=== PATIENT | female | born 1945 | race African-American/Black ===

== ENCOUNTER 2022-01-16 10:03 | Inpatient (IN) | payer MEDICARE, OTHER ==
[~2022-01-16] VITALS: Ht 170.2 cm; Wt 64.1 kg
[2022-01-16] MEDS ORDERED: 0.9% SODIUM CHLORIDE 10 ML VIAL IRRIG ONE (10:04)
[2022-01-16] MEDS ORDERED: LORazepam 2 MG/ML VIAL IM ONE (10:04)
[2022-01-16] MEDS ORDERED: PIPERACILLIN/TAZO 3.375 GM/D5W 50 ML IV ONE (10:15)
[2022-01-16] MEDS ORDERED: SODIUM CHLORIDE 0.9% 2,000 ML IV ONE (10:15)
[2022-01-16] MEDS ORDERED: LORazepam 2 MG/ML VIAL IVP ONE (10:30)
[2022-01-16] MEDS ORDERED: DIAZEPAM 5 MG/ML 2 ML SYRINGE IVP ONE (10:30)
[2022-01-16 10:53] LABS: BASOPHILS % (AUTO) 0.1 % (0.0-2.0); EOSINOPHILS % (AUTO) 0 % (1.0-6.0); HEMATOCRIT 24.9 % (36-46); HEMOGLOBIN 7.7 g/dL (12.0-16.0); LYMPHOCYTES # (AUTO) 0.9 K/uL (1.0-4.8); LYMPHOCYTES % (AUTO) 6.1 % (22.0-44.0); MEAN CORPUSCULAR HEMOGLOBIN 31.8 pg (26.0-34.0); MEAN CORPUSCULAR HGB CONC 31.1 G/dL (31.0-37.0); MEAN CORPUSCULAR VOLUME 102 fL (80-100); MONOCYTES % (AUTO) 6.7 % (2.0-9.0); NEUTROPHILS # (AUTO) 12.7 K/uL (1.8-7.7); RED BLOOD CELL COUNT(AUTO) 2.43 MIL/uL (4.00-5.20); RED CELL DISTRIBUTION WIDTH 20.5 % (11.5-14.5)
[2022-01-16 11:00] LABS: CALCIUM, TOTAL 8.2 mg/dL (8.8-10.5); CREATININE 2.85 mg/dL (0.60-1.30); POTASSIUM 3.6 mmol/L (3.5-5.1)
[2022-01-16] MEDS ORDERED: MANNITOL 25%-12.5 GM/50 ML VIAL IVP ONE (11:00)
[2022-01-16 11:01] LABS: NEUTROPHILS % (AUTO) 87.1 % (40.0-70.0)
[2022-01-16 11:07] LABS: ALBUMIN 2.2 g/dL (3.4-5.0); BILIRUBIN,TOTAL 0.5 mg/dL (0.1-1.0); TOTAL PROTEIN, SERUM 5.7 g/dL (6.4-8.2)
[2022-01-16 11:14] LABS: INR 1.1 (0.9-1.1); PROTHROMBIN TIME 11.3 SEC (9.4-11.6)
[2022-01-16] MEDS ORDERED: NiCARDipine HCL 25 MG in SODIUM CHLORIDE 0.9% 240 ML IV PRN (11:15)
[2022-01-16 12:29] LABS: APPEARANCE,URINE HAZY (CLEAR); BILIRUBIN,URINE NEGATIVE (NEGATIVE); GLUCOSE, URINE (UA) 70-100 mg/dL (NEGATIVE); KETONES,URINE NEGATIVE (NEGATIVE); LEUKOCYTE ESTERASE ,URINE NEGATIVE (NEGATIVE); NITRATE,URINE NEGATIVE (NEGATIVE); OCCULT BLOOD,URINE LARGE (NEGATIVE); PROTEIN,URINE 300-600,SEE CONFIRM mg/dL (NEGATIVE); SPECIFIC GRAVITIY, URINE 1.013 (1.003-1.030); UROBILINOGEN,URINE <=1.0 mg/dL (<=1.0)
[2022-01-16 12:43] LABS: SULFOSALICYLIC ACID,URINE 3+ (Negative)
[2022-01-16 12:44] LABS: BACTERIA,URINE None Seen /HPF (None Seen); YEAST,URINE Many /HPF (None Seen)
[2022-01-16 12:58] LABS: PLATELET COUNT (AUTO) 56 K/uL (150-450)
[2022-01-16] MEDS ORDERED: MORPHINE SULFATE 2 MG/ML SYRINGE IVP PRN (13:00)
[2022-01-16] MEDS ORDERED: MAGNESIUM HYDROXIDE SUSPENSION 30 ML UDCUP PO PRN (13:00)
[2022-01-16] MEDS ORDERED: HYDROCODONE/ACETAMINOPHEN 5-325 MG TABLET PO PRN (13:00)
[2022-01-16] MEDS ORDERED: BISACODYL 10 MG RECTAL RECTAL SUPPOSITORY PR PRN (13:00)
[2022-01-16] MEDS ORDERED: ONDANSETRON HCL 4 MG/2 ML VIAL IVP PRN (13:00)
[2022-01-16] MEDS ORDERED: ZOLPIDEM TARTRATE 5 MG TABLET PO PRN (13:00)
[2022-01-16] MEDS ORDERED: ACETAMINOPHEN 325 MG TABLET PO PRN (13:00)
[2022-01-16 13:51] LABS: ABG BASE EXCESS -2.4 mmol/L (-2.0-3.0); ABG CARBOXYHEMOGLOBIN 0.1 % (0.0-1.5); ABG HCO3 22.7 mmol/L (22.0-26.0); ABG METHEMOGLOBIN 0.2 % (0.0-1.5); ABG OXYGEN SATURATION 98.1 % (95.0-98.0); ABG OXYHEMOGLOBIN 97.8 % (94.0-100.0); ABG PCO2 36 mmHg (35-45); ABG PH 7.407 (7.35-7.450); ABG TOTAL HEMOGLOBIN 7.8 G/dL (12.0-18.0); PO2, ARTERIAL BG 118.6 mmHg (75.0-83.0); SITE, BLOOD GAS LFT RADIAL; SOURCE, BLOOD GAS ARTERIAL; TEMPERATURE, FAHRENHEIT, BG 99.2 FAHREN (96.0-98.6)
[2022-01-16 13:52] LABS: ABG A-A DIFF O2 95.7 mmHg (10-20.0); O2 DEVICE,BLOOD GAS CANNULA (ROOM AIR)
[2022-01-16] MEDS ORDERED: MethylPREDNISolone SOD SUCC 125 MG/2 ML VIAL IVP SCH (14:45)
[2022-01-16] MEDS ORDERED: MethylPREDNISolone SOD SUCC 500 MG in SODIUM CHLORIDE 0.9% 50 ML IV SCH (15:00)
[2022-01-16] MEDS: NiCARDipine HCL 25 MG in SODIUM CHLORIDE 0.9% 240 ML IV PRN ×2 (16:04→21:48)
[2022-01-16] MEDS ORDERED: HYDR25TA2 PO (17:50)
[2022-01-16] MEDS ORDERED: METH-386 PO (17:50)
[2022-01-16] MEDS ORDERED: CARV3.1231 PO (17:50)
[2022-01-16] MEDS ORDERED: [UNRECOGNIZED DRUG - CODE] IV (17:50)
[2022-01-16] MEDS ORDERED: AMLO-258 PO (17:50)
[2022-01-16] MEDS ORDERED: LISI-663 PO (17:50)
[2022-01-16] MEDS ORDERED: PRED5SOL PO (17:50)
[2022-01-16 19:21] LABS: APPEARANCE,URINE HAZY (CLEAR); BILIRUBIN,URINE NEGATIVE (NEGATIVE); GLUCOSE, URINE (UA) NEGATIVE (NEGATIVE); KETONES,URINE NEGATIVE (NEGATIVE); LEUKOCYTE ESTERASE ,URINE NEGATIVE (NEGATIVE); NITRATE,URINE NEGATIVE (NEGATIVE); OCCULT BLOOD,URINE MODERATE (NEGATIVE); PROTEIN,URINE 300-600,SEE CONFIRM mg/dL (NEGATIVE); SPECIFIC GRAVITIY, URINE 1.015 (1.003-1.030); UROBILINOGEN,URINE <=1.0 mg/dL (<=1.0)
[2022-01-16] MEDS: PIPERACILLIN SODIUM/TAZOBACTAM 2.25 GM in DEXTROSE 5%-WATER 50 ML IV SCH (19:22)
[2022-01-16 19:27] LABS: AMPHET/METH SCREEN,URINE NEGATIVE (NEGATIVE); BARBITURATE SCREEN, URINE NEGATIVE (NEGATIVE); BENZODIAZEPINES SCREEN,URINE NEGATIVE (NEGATIVE); CANNABINOID SCREEN,URINE NEGATIVE (NEGATIVE); COCAINE SCREEN,URINE NEGATIVE (NEGATIVE); METHADONE SCREEN, URINE NEGATIVE (NEGATIVE); OPIATE SCREEN,URINE NEGATIVE (NEGATIVE)
[2022-01-16 19:28] LABS: PHENCYCLIDINE SCREEN,URINE NEGATIVE (NEGATIVE)
[2022-01-16 19:29] LABS: PROTEIN,URINE RANDOM 323 mg/dL (0-11.9); SODIUM,URINE RANDOM 81 mmol/l (20-110)
[2022-01-16 19:56] LABS: YEAST,URINE Many /HPF (None Seen)
[2022-01-16 19:57] LABS: BACTERIA,URINE None Seen /HPF (None Seen); RBC,URINE 0-2 /HPF (0-2); SQUAMOUS EPITHELIAL CELL,UR Rare /LPF (None Seen)
[2022-01-16 20:45] VITALS: BP 133/104
[2022-01-16] MEDS: MYCOPHENOLATE MOFETIL 250 MG CAPSULE PO SCH (21:00)
[2022-01-16] MEDS: DOCUSATE SODIUM 100 MG CAPSULE PO SCH (21:00)
[2022-01-16] MEDS: FUROSEMIDE 20 MG/2 ML VIAL IVP SCH (21:31)
[2022-01-16 22:00] VITALS: BP 123/87
[2022-01-17] VITALS (11 sets, daily range): BP systolic 107–137; BP diastolic 47–75
[2022-01-17] MEDS: PIPERACILLIN SODIUM/TAZOBACTAM 2.25 GM in DEXTROSE 5%-WATER 50 ML IV SCH ×3 (02:42→20:44)
[2022-01-17] MEDS: NiCARDipine HCL 25 MG in SODIUM CHLORIDE 0.9% 240 ML IV PRN ×4 (02:42→10:38)
[2022-01-17] MEDS ORDERED: SODIUM CHLORIDE 0.9% 250 ML IV ONE (02:44)
[2022-01-17 05:59] LABS: CALCIUM, TOTAL 8.1 mg/dL (8.8-10.5); CREATININE 3.12 mg/dL (0.60-1.30); PHOSPHORUS 4.8 mg/dL (2.5-4.9); POTASSIUM 3.7 mmol/L (3.5-5.1)
[2022-01-17 06:05] LABS: % IRON SATURATION 19.7 % (22-44)
[2022-01-17 06:11] LABS: BASOPHILS % (AUTO) 0.4 % (0.0-2.0); EOSINOPHILS % (AUTO) 0 % (1.0-6.0); LYMPHOCYTES # (AUTO) 0.8 K/uL (1.0-4.8); LYMPHOCYTES % (AUTO) 6.2 % (22.0-44.0); MEAN CORPUSCULAR HEMOGLOBIN 32.5 pg (26.0-34.0); MEAN CORPUSCULAR HGB CONC 32.5 G/dL (31.0-37.0); MEAN CORPUSCULAR VOLUME 100 fL (80-100); MONOCYTES # (AUTO) 0.2 K/uL (0.1-1.0); MONOCYTES % (AUTO) 1.7 % (2.0-9.0); NEUTROPHILS # (AUTO) 12.4 K/uL (1.8-7.7); NEUTROPHILS % (AUTO) 91.7 % (40.0-70.0); PLATELET COUNT (AUTO) 60 K/uL (150-450); RED BLOOD CELL COUNT(AUTO) 1.99 MIL/uL (4.00-5.20); RED CELL DISTRIBUTION WIDTH 20.9 % (11.5-14.5)
[2022-01-17 06:13] LABS: HEMATOCRIT 19.9 % (36-46); HEMOGLOBIN 6.5 g/dL (12.0-16.0)
[2022-01-17] MEDS: MethylPREDNISolone SOD SUCC 40 MG/ML VIAL IVP SCH (09:18)
[2022-01-17] MEDS: EPOETIN ALFA 10,000 UNITS/ML VIAL SQ SCH (09:18)
[2022-01-17] MEDS: FUROSEMIDE 20 MG/2 ML VIAL IVP SCH ×2 (09:19→20:43)
[2022-01-17] MEDS: MYCOPHENOLATE MOFETIL 250 MG CAPSULE PO SCH ×2 (09:22→22:58)
[2022-01-17] MEDS: PANTOPRAZOLE SODIUM 40 MG DR TABLET PO SCH (09:24)
[2022-01-17] MEDS: DOCUSATE SODIUM 100 MG CAPSULE PO SCH ×2 (09:24→20:44)
[2022-01-17] MEDS ORDERED: SOD FERRIC GLUC COMPLX/SUCROSE 125 MG in SODIUM CHLORIDE 0.9% 100 ML IV SCH (10:00)
[2022-01-17] MEDS: CARVEDILOL 3.125 MG TABLET PO SCH ×2 (10:35→20:43)
[2022-01-17] MEDS ORDERED: PRED-554 PO (11:37)
[2022-01-17] MEDS ORDERED: CARV6 PO (11:37)
[2022-01-17] MEDS ORDERED: MYCO500T5 PO (11:37)
[2022-01-17] MEDS ORDERED: TRAV2.5D7 OU (11:37)
[2022-01-18] VITALS: BP 127/63
[2022-01-18] MEDS: PIPERACILLIN SODIUM/TAZOBACTAM 2.25 GM in DEXTROSE 5%-WATER 50 ML IV SCH ×3 (02:25→18:05)
[2022-01-18 04:00] VITALS: BP 131/74
[2022-01-18 05:19] LABS: BASOPHILS % (AUTO) 0.3 % (0.0-2.0); EOSINOPHILS % (AUTO) 0 % (1.0-6.0); LYMPHOCYTES # (AUTO) 0.6 K/uL (1.0-4.8); LYMPHOCYTES % (AUTO) 5.1 % (22.0-44.0); MEAN CORPUSCULAR HEMOGLOBIN 32.3 pg (26.0-34.0); MEAN CORPUSCULAR HGB CONC 31.8 G/dL (31.0-37.0); MEAN CORPUSCULAR VOLUME 102 fL (80-100); MONOCYTES # (AUTO) 0.4 K/uL (0.1-1.0); NEUTROPHILS # (AUTO) 11.1 K/uL (1.8-7.7); PLATELET COUNT (AUTO) 71 K/uL (150-450); RED BLOOD CELL COUNT(AUTO) 1.84 MIL/uL (4.00-5.20)
[2022-01-18 05:20] LABS: NEUTROPHILS % (AUTO) 91.6 % (40.0-70.0)
[2022-01-18 05:30] LABS: CALCIUM, TOTAL 7.6 mg/dL (8.8-10.5); CHOL/HDL RATIO 2.9 (3.9-5.7); CREATININE 3.84 mg/dL (0.60-1.30); FREE T4 (FREE THYROXINE) 0.74 ng/dL (0.76-1.46); HEMATOCRIT 18.7 % (36-46); POTASSIUM 3.6 mmol/L (3.5-5.1); THYROID STIMULATING HORMONE 0.8 uIU/mL (0.36-3.74)
[2022-01-18] MEDS: ATORVASTATIN CALCIUM 20 MG TABLET PO SCH (07:51)
[2022-01-18] MEDS: FUROSEMIDE 20 MG/2 ML VIAL IVP SCH ×2 (07:51→21:05)
[2022-01-18] MEDS: MethylPREDNISolone SOD SUCC 40 MG/ML VIAL IVP SCH (07:51)
[2022-01-18] MEDS: PANTOPRAZOLE SODIUM 40 MG DR TABLET PO SCH (07:51)
[2022-01-18] MEDS: CARVEDILOL 3.125 MG TABLET PO SCH ×2 (07:51→21:05)
[2022-01-18] MEDS: DOCUSATE SODIUM 100 MG CAPSULE PO SCH ×2 (07:52→21:05)
[2022-01-18] MEDS: MYCOPHENOLATE MOFETIL 250 MG CAPSULE PO SCH ×2 (07:52→21:05)
[2022-01-18 08:00] VITALS: BP 158/82
[2022-01-18] MEDS: SOD FERRIC GLUC COMPLX/SUCROSE 125 MG in SODIUM CHLORIDE 0.9% 100 ML IV SCH (09:01)
[2022-01-18 12:00] VITALS: BP 142/65
[2022-01-18] MEDS ORDERED: SODIUM CHLORIDE 0.9% 250 ML IV ONE (14:48)
[2022-01-18 16:00] VITALS: BP 165/90
[2022-01-18 20:00] VITALS: BP 175/98
[2022-01-18] MEDS: BRIMONIDINE TARTRATE 0.1% 5 ML OPHTHALMIC SOLUTION OU SCH (21:05)
[2022-01-18] MEDS: TRAVOPROST-Z 0.004% 2.5 ML OPHTHALMIC SOLUTION OU SCH (21:05)
[2022-01-18] MEDS ORDERED: CARVEDILOL 3.125 MG TABLET PO SCH (22:30)
[2022-01-19] VITALS (13 sets, daily range): BP systolic 135–201; BP diastolic 77–170
[2022-01-19] MEDS: PIPERACILLIN SODIUM/TAZOBACTAM 2.25 GM in DEXTROSE 5%-WATER 50 ML IV SCH ×3 (03:01→17:59)
[2022-01-19] MEDS ORDERED: SODIUM CHLORIDE 0.9% 250 ML IV ONE (04:32)
[2022-01-19] MEDS ORDERED: HydrALAZINE HCL 20 MG/ML VIAL IVP ONE (04:45)
[2022-01-19 05:19] LABS: BASOPHILS % (AUTO) 0.4 % (0.0-2.0); EOSINOPHILS % (AUTO) 0.1 % (1.0-6.0); LYMPHOCYTES # (AUTO) 0.6 K/uL (1.0-4.8); LYMPHOCYTES % (AUTO) 5.3 % (22.0-44.0); MEAN CORPUSCULAR HEMOGLOBIN 32.5 pg (26.0-34.0); MEAN CORPUSCULAR HGB CONC 30.3 G/dL (31.0-37.0); MEAN CORPUSCULAR VOLUME 107 fL (80-100); MONOCYTES # (AUTO) 0.7 K/uL (0.1-1.0); MONOCYTES % (AUTO) 6.4 % (2.0-9.0); NEUTROPHILS # (AUTO) 10.2 K/uL (1.8-7.7); PLATELET COUNT (AUTO) 53 K/uL (150-450); RED BLOOD CELL COUNT(AUTO) 1.86 MIL/uL (4.00-5.20); RED CELL DISTRIBUTION WIDTH 20.3 % (11.5-14.5)
[2022-01-19 05:31] LABS: NEUTROPHILS % (AUTO) 87.8 % (40.0-70.0)
[2022-01-19 05:34] LABS: HEMATOCRIT 19.8 % (36-46)
[2022-01-19 05:41] LABS: ALBUMIN 2.3 g/dL (3.4-5.0); BILIRUBIN,TOTAL 0.3 mg/dL (0.1-1.0); CALCIUM, TOTAL 7.1 mg/dL (8.8-10.5); CREATININE 3.74 mg/dL (0.60-1.30); MAGNESIUM 1.6 mg/dL (1.80-2.40); POTASSIUM 3.2 mmol/L (3.5-5.1); TOTAL PROTEIN, SERUM 5.7 g/dL (6.4-8.2)
[2022-01-19] MEDS: MethylPREDNISolone SOD SUCC 40 MG/ML VIAL IVP SCH (06:09)
[2022-01-19] MEDS ORDERED: MAGNESIUM OXIDE 400 MG TABLET PO ONE (06:15)
[2022-01-19] MEDS ORDERED: ALBUTEROL SULFATE 2.5 MG/0.5 ML NEB SOLUTION NEB PRN ×2 (06:15→13:30)
[2022-01-19 06:27] LABS: GLUCOSE,POINT OF CARE 174 MG/DL (70-110)
[2022-01-19] MEDS ORDERED: 0.9% SODIUM CHLORIDE 5 ML NEB SOLUTION NEB ONE (07:05)
[2022-01-19] MEDS: FUROSEMIDE 20 MG/2 ML VIAL IVP SCH ×2 (07:31→20:04)
[2022-01-19] MEDS: ATORVASTATIN CALCIUM 20 MG TABLET PO SCH (07:32)
[2022-01-19] MEDS: PANTOPRAZOLE SODIUM 40 MG DR TABLET PO SCH (07:32)
[2022-01-19] MEDS: SOD FERRIC GLUC COMPLX/SUCROSE 125 MG in SODIUM CHLORIDE 0.9% 100 ML IV SCH (08:26)
[2022-01-19] MEDS: MYCOPHENOLATE MOFETIL 250 MG CAPSULE PO SCH ×2 (08:35→19:43)
[2022-01-19] MEDS: DOCUSATE SODIUM 100 MG CAPSULE PO SCH ×2 (08:35→19:43)
[2022-01-19] MEDS ORDERED: AmLODIPine BESYLATE 5 MG TABLET PO SCH (09:00)
[2022-01-19] MEDS ORDERED: POTASSIUM CHLORIDE 10% 40 MEQ/30 ML LIQUID UDCUP PO ONE (09:00)
[2022-01-19] MEDS ORDERED: CARVEDILOL 3.125 MG TABLET PO SCH (09:00)
[2022-01-19] MEDS ORDERED: AmLODIPine BESYLATE 5 MG TABLET PO ONE (09:45)
[2022-01-19] MEDS ORDERED: LABETALOL HCL 5 MG/ML 20 ML VIAL IVP ONE (09:45)
[2022-01-19] MEDS ORDERED: CARVEDILOL 6.25 MG TABLET PO ONE (09:45)
[2022-01-19] MEDS ORDERED: CARVEDILOL 12.5 MG TABLET PO ONE (12:00)
[2022-01-19] MEDS: NiCARDipine HCL 25 MG in SODIUM CHLORIDE 0.9% 240 ML IV PRN (13:01)
[2022-01-19] MEDS ORDERED: IPRATROPIUM BROMIDE 0.5 MG/2.5 ML NEB SOLUTION NEB PRN (13:30)
[2022-01-19] MEDS: LABETALOL HCL 5 MG/ML 20 ML VIAL IVP PRN ×4 (15:29→23:31)
[2022-01-19] MEDS ORDERED: NiCARDipine HCL 25 MG in SODIUM CHLORIDE 0.9% 240 ML IV PRN (16:40)
[2022-01-19] MEDS: BRIMONIDINE TARTRATE 0.1% 5 ML OPHTHALMIC SOLUTION OU SCH (19:44)
[2022-01-19] MEDS: TRAVOPROST-Z 0.004% 2.5 ML OPHTHALMIC SOLUTION OU SCH (19:44)
[2022-01-19] MEDS: CARVEDILOL 12.5 MG TABLET PO SCH (19:44)
[2022-01-20] VITALS: BP 141/78
[2022-01-20] MEDS: LABETALOL HCL 5 MG/ML 20 ML VIAL IVP PRN ×3 (02:39→22:06)
[2022-01-20 04:00] VITALS: BP 164/91
[2022-01-20] MEDS: PIPERACILLIN SODIUM/TAZOBACTAM 2.25 GM in DEXTROSE 5%-WATER 50 ML IV SCH ×3 (05:26→18:12)
[2022-01-20 05:36] LABS: BASOPHILS % (AUTO) 0.4 % (0.0-2.0); EOSINOPHILS % (AUTO) 0.3 % (1.0-6.0); LYMPHOCYTES # (AUTO) 0.3 K/uL (1.0-4.8); LYMPHOCYTES % (AUTO) 2.9 % (22.0-44.0); MEAN CORPUSCULAR HEMOGLOBIN 32.8 pg (26.0-34.0); MEAN CORPUSCULAR HGB CONC 32.9 G/dL (31.0-37.0); MEAN CORPUSCULAR VOLUME 100 fL (80-100); MONOCYTES # (AUTO) 0.4 K/uL (0.1-1.0); MONOCYTES % (AUTO) 3.5 % (2.0-9.0); NEUTROPHILS # (AUTO) 11.1 K/uL (1.8-7.7); PLATELET COUNT (AUTO) 70 K/uL (150-450); RED BLOOD CELL COUNT(AUTO) 1.92 MIL/uL (4.00-5.20); RED CELL DISTRIBUTION WIDTH 19.4 % (11.5-14.5)
[2022-01-20 05:44] LABS: NEUTROPHILS % (AUTO) 92.9 % (40.0-70.0)
[2022-01-20 05:46] LABS: HEMATOCRIT 19.1 % (36-46); HEMOGLOBIN 6.3 g/dL (12.0-16.0)
[2022-01-20 05:51] LABS: ALBUMIN 2.2 g/dL (3.4-5.0); BILIRUBIN,TOTAL 0.3 mg/dL (0.1-1.0); CALCIUM, TOTAL 6.9 mg/dL (8.8-10.5); CREATININE 3.88 mg/dL (0.60-1.30); MAGNESIUM 1.3 mg/dL (1.80-2.40); TOTAL PROTEIN, SERUM 5.5 g/dL (6.4-8.2)
[2022-01-20 05:53] LABS: POTASSIUM 2.8 mmol/L (3.5-5.1)
[2022-01-20] MEDS ORDERED: POTASSIUM CHLORIDE 20 MEQ ER TABLET PO ONE ×2 (06:00→14:15)
[2022-01-20] MEDS: SOD FERRIC GLUC COMPLX/SUCROSE 125 MG in SODIUM CHLORIDE 0.9% 100 ML IV SCH (07:55)
[2022-01-20] MEDS: MethylPREDNISolone SOD SUCC 40 MG/ML VIAL IVP SCH (07:55)
[2022-01-20] MEDS: ATORVASTATIN CALCIUM 20 MG TABLET PO SCH (07:56)
[2022-01-20] MEDS: AmLODIPine BESYLATE 10 MG TABLET PO SCH (07:56)
[2022-01-20] MEDS: MYCOPHENOLATE MOFETIL 250 MG CAPSULE PO SCH ×2 (07:56→20:19)
[2022-01-20] MEDS: CARVEDILOL 12.5 MG TABLET PO SCH ×2 (07:57→20:19)
[2022-01-20] MEDS: PANTOPRAZOLE SODIUM 40 MG DR TABLET PO SCH (07:57)
[2022-01-20] MEDS: EPOETIN ALFA 10,000 UNITS/ML VIAL SQ SCH (07:57)
[2022-01-20] MEDS: DOCUSATE SODIUM 100 MG CAPSULE PO SCH ×2 (07:59→20:18)
[2022-01-20 08:00] VITALS: BP 131/70
[2022-01-20] MEDS: FUROSEMIDE 20 MG/2 ML VIAL IVP SCH (09:00)
[2022-01-20] MEDS ORDERED: MAGNESIUM SULFATE 4 GM/WATER 100 ML IV ONE (09:30)
[2022-01-20 12:00] VITALS: BP 140/65
[2022-01-20 16:00] VITALS: BP 144/84
[2022-01-20] MEDS: HydrALAZINE HCL 50 MG TABLET PO SCH ×2 (17:36→23:59)
[2022-01-20 20:00] VITALS: BP 147/92
[2022-01-20 20:02] LABS: CALCIUM, TOTAL 7.1 mg/dL (8.8-10.5); CREATININE 3.6 mg/dL (0.60-1.30); POTASSIUM 3.9 mmol/L (3.5-5.1)
[2022-01-20] MEDS: BRIMONIDINE TARTRATE 0.1% 5 ML OPHTHALMIC SOLUTION OU SCH (20:19)
[2022-01-20] MEDS: FUROSEMIDE 20 MG TABLET PO SCH (20:19)
[2022-01-20] MEDS: TRAVOPROST-Z 0.004% 2.5 ML OPHTHALMIC SOLUTION OU SCH (20:20)
[2022-01-21] VITALS: BP 141/83
[2022-01-21] MEDS: PIPERACILLIN SODIUM/TAZOBACTAM 2.25 GM in DEXTROSE 5%-WATER 50 ML IV SCH ×2 (02:57→11:34)
[2022-01-21] MEDS: LABETALOL HCL 5 MG/ML 20 ML VIAL IVP PRN ×3 (03:27→12:54)
[2022-01-21 04:00] VITALS: BP 142/80
[2022-01-21 06:01] VITALS: BP 157/103
[2022-01-21 07:51] VITALS: BP 159/84
[2022-01-21] MEDS ORDERED: SODIUM CHLORIDE 0.9% 250 ML IV ONE ×2 (08:56→11:16)
[2022-01-21] MEDS: HydrALAZINE HCL 50 MG TABLET PO SCH ×2 (08:58→16:12)
[2022-01-21] MEDS: FUROSEMIDE 20 MG TABLET PO SCH (08:58)
[2022-01-21] MEDS: AmLODIPine BESYLATE 10 MG TABLET PO SCH (08:58)
[2022-01-21] MEDS: CARVEDILOL 12.5 MG TABLET PO SCH (08:59)
[2022-01-21] MEDS: ATORVASTATIN CALCIUM 20 MG TABLET PO SCH (08:59)
[2022-01-21] MEDS: PANTOPRAZOLE SODIUM 40 MG DR TABLET PO SCH (08:59)
[2022-01-21] MEDS: DOCUSATE SODIUM 100 MG CAPSULE PO SCH (09:00)
[2022-01-21] MEDS ORDERED: PredniSONE 20 MG TABLET PO SCH (09:00)
[2022-01-21] MEDS: MYCOPHENOLATE MOFETIL 250 MG CAPSULE PO SCH (09:01)
[2022-01-21] MEDS: SOD FERRIC GLUC COMPLX/SUCROSE 125 MG in SODIUM CHLORIDE 0.9% 100 ML IV SCH (09:01)
[2022-01-21 10:58] VITALS: BP 149/81
[2022-01-21 14:16] LABS: COVID AG,FIA SOURCE NASAL SWAB
[2022-01-21 16:07] VITALS: BP 132/82
== END 2022-01-21 18:27 | DRG 82 ==
LOC: EDBD 10:03 → EMS 10:03 → ICU 19:40 → 5S 01-21 05:35
PROVIDERS: ADMIT Internal Medicine; ATTEND Internal Medicine
PROC: 05H933Z Insertion of Infusion Device into Right Brachial Vein, Percutaneous Approach (ICD-10-PCS; principal; 2022-01-20)
DX: S06.369A Traumatic hemorrhage of cerebrum, unspecified, with loss of consciousness of unspecified duration, initial encounter (principal); G93.41 Metabolic encephalopathy; I16.1 Hypertensive emergency; E44.0 Moderate protein-calorie malnutrition; N17.9 Acute kidney failure, unspecified; M32.9 Systemic lupus erythematosus, unspecified; Z20.822 Contact with and (suspected) exposure to COVID-19; Z79.899 Other long term (current) drug therapy; D50.9 Iron deficiency anemia, unspecified; D53.9 Nutritional anemia, unspecified; D63.1 Anemia in chronic kidney disease; D69.6 Thrombocytopenia, unspecified; E11.22 Type 2 diabetes mellitus with diabetic chronic kidney disease; E87.6 Hypokalemia; M32.14 Glomerular disease in systemic lupus erythematosus; N18.9 Chronic kidney disease, unspecified; R77.8 Other specified abnormalities of plasma proteins; R31.29 Other microscopic hematuria; E87.70 Fluid overload, unspecified; W18.39XA Other fall on same level, initial encounter; I12.9 Hypertensive chronic kidney disease with stage 1 through stage 4 chronic kidney disease, or unspecified chronic kidney disease; Z87.891 Personal history of nicotine dependence; Z86.73 Personal history of transient ischemic attack (TIA), and cerebral infarction without residual deficits; Z80.42 Family history of malignant neoplasm of prostate; Z68.22 Body mass index [BMI] 22.0-22.9, adult; Y93.89 Activity, other specified; Y92.89 Other specified places as the place of occurrence of the external cause; Y99.8 Other external cause status
CPT/HCPCS: 36245; 36569; 51702; 70450; 70553; 71045; 76937; 80048; 80053; 80061; 81001; 81002; 82570; 82805; 82948; 82962; 83540; 83550; 83735; 84100; 84156; 84300; 84439; 84443; 84484; 85025; 85610; 85651; 85730; 86160; 86225; 86850; 86900; 86901; 87040; 87081; 87086; 92526; 92610; 93005; 93306; 94640; 97112; 97163; 97167; 97530; 97535; 99291; G0378; J0360; J0885; J1940; J2060; J2150; J2543; J2916; J2920; J2930; J3475; J3490; J7030; J7050; J7060; J7517; 36415-L1; 36415-TC; J7613; U0003

== ENCOUNTER 2022-01-21 14:05 | Inpatient (IN) | payer MEDICARE, OTHER ==
[~2022-01-21] VITALS: Ht 162.6 cm; Wt 62.1 kg
[~2022-01-21 14:05] MED LIST: AMLO-258 PO; CARV6 PO; HYDR25TA2 PO; LISI-663 PO; METH-386 PO; MYCO500T5 PO; PRED-554 PO; TRAV2.5D7 OU
[2022-01-21] MEDS ORDERED: PIPERACILLIN SODIUM/TAZOBACTAM 2.25 GM in DEXTROSE 5%-WATER 50 ML IV SCH (19:45)
[2022-01-21] MEDS ORDERED: ALBUTEROL SULFATE 2.5 MG/0.5 ML NEB SOLUTION NEB PRN (19:45)
[2022-01-21] MEDS ORDERED: ACETAMINOPHEN 325 MG TABLET PO PRN ×2 (19:45)
[2022-01-21] MEDS ORDERED: MELATONIN 3 MG TABLET PO PRN (19:45)
[2022-01-21 20:55] VITALS: BP 162/74
[2022-01-21] MEDS: DOCUSATE SODIUM 100 MG CAPSULE PO SCH (21:00)
[2022-01-21] MEDS: SENNA 187 MG TABLET PO SCH (21:00)
[2022-01-21] MEDS: ETHYL ALCOHOL 62% ANTISEPTIC NASAL SANITIZER 0.6 ML AMPUL NASAL SCH (21:20)
[2022-01-21] MEDS: FUROSEMIDE 20 MG TABLET PO SCH (21:22)
[2022-01-21] MEDS: MYCOPHENOLATE MOFETIL 250 MG CAPSULE PO SCH (21:22)
[2022-01-21] MEDS: CARVEDILOL 12.5 MG TABLET PO SCH (21:24)
[2022-01-21] MEDS: ATORVASTATIN CALCIUM 20 MG TABLET PO SCH (21:24)
[2022-01-21] MEDS: 0.9% SODIUM CHLORIDE 10 ML SYRINGE IVP SCH (21:34)
[2022-01-21] MEDS: BRIMONIDINE TARTRATE 0.1% 5 ML OPHTHALMIC SOLUTION OU SCH (21:38)
[2022-01-21] MEDS: TRAVOPROST-Z 0.004% 2.5 ML OPHTHALMIC SOLUTION OU SCH (21:43)
[2022-01-22 00:20] VITALS: BP 149/76
[2022-01-22] MEDS: HydrALAZINE HCL 50 MG TABLET PO SCH ×4 (00:29→23:05)
[2022-01-22] MEDS: PANTOPRAZOLE SODIUM 40 MG DR TABLET PO SCH (05:55)
[2022-01-22 06:18] LABS: BASOPHILS % (AUTO) 0.7 % (0.0-2.0); EOSINOPHILS % (AUTO) 0.3 % (1.0-6.0); LYMPHOCYTES # (AUTO) 0.4 K/uL (1.0-4.8); LYMPHOCYTES % (AUTO) 2.8 % (22.0-44.0); MEAN CORPUSCULAR HEMOGLOBIN 32.4 pg (26.0-34.0); MEAN CORPUSCULAR VOLUME 101 fL (80-100); MONOCYTES # (AUTO) 0.6 K/uL (0.1-1.0); MONOCYTES % (AUTO) 4.5 % (2.0-9.0); NEUTROPHILS # (AUTO) 11.7 K/uL (1.8-7.7); PLATELET COUNT (AUTO) 93 K/uL (150-450); RED BLOOD CELL COUNT(AUTO) 1.98 MIL/uL (4.00-5.20); RED CELL DISTRIBUTION WIDTH 19.8 % (11.5-14.5)
[2022-01-22 07:03] LABS: ALBUMIN 2.1 g/dL (3.4-5.0); BILIRUBIN,TOTAL 0.3 mg/dL (0.1-1.0); CALCIUM, TOTAL 7.1 mg/dL (8.8-10.5); CREATININE 3.19 mg/dL (0.60-1.30); TOTAL PROTEIN, SERUM 5.7 g/dL (6.4-8.2)
[2022-01-22 07:08] LABS: HEMATOCRIT 20.1 % (36-46); HEMOGLOBIN 6.4 g/dL (12.0-16.0)
[2022-01-22 07:09] LABS: NEUTROPHILS % (AUTO) 91.7 % (40.0-70.0)
[2022-01-22 07:22] LABS: POTASSIUM 2.9 mmol/L (3.5-5.1)
[2022-01-22] MEDS ORDERED: SODIUM CHLORIDE 0.9% 250 ML IV ONE (08:08)
[2022-01-22] MEDS: SOD FERRIC GLUC COMPLX/SUCROSE 125 MG in SODIUM CHLORIDE 0.9% 100 ML IV SCH (08:17)
[2022-01-22] MEDS: MYCOPHENOLATE MOFETIL 250 MG CAPSULE PO SCH ×2 (08:30→20:32)
[2022-01-22] MEDS: FUROSEMIDE 20 MG TABLET PO SCH ×2 (08:30→20:31)
[2022-01-22] MEDS: EPOETIN ALFA 10,000 UNITS/ML VIAL SQ SCH (08:30)
[2022-01-22] MEDS: PredniSONE 20 MG TABLET PO SCH (08:31)
[2022-01-22] MEDS: AmLODIPine BESYLATE 10 MG TABLET PO SCH (08:31)
[2022-01-22] MEDS: CARVEDILOL 12.5 MG TABLET PO SCH ×2 (08:31→20:31)
[2022-01-22] MEDS: DOCUSATE SODIUM 100 MG CAPSULE PO SCH ×2 (08:32→20:32)
[2022-01-22] MEDS: ETHYL ALCOHOL 62% ANTISEPTIC NASAL SANITIZER 0.6 ML AMPUL NASAL SCH ×2 (08:32→20:32)
[2022-01-22] MEDS: 0.9% SODIUM CHLORIDE 10 ML SYRINGE IVP SCH ×2 (08:32→20:49)
[2022-01-22] MEDS ORDERED: TRAVOPROST-Z 0.004% 2.5 ML OPHTHALMIC SOLUTION OU SCH (09:00)
[2022-01-22 09:46] VITALS: BP 152/84
[2022-01-22] MEDS ORDERED: POTASSIUM CHLORIDE 20 MEQ ER TABLET PO ONE (10:30)
[2022-01-22] MEDS ORDERED: POTASSIUM CHLORIDE 10 MEQ ER TABLET PO ONE (11:00)
[2022-01-22 15:29] VITALS: BP 156/71
[2022-01-22 20:18] VITALS: BP 142/84
[2022-01-22] MEDS: BRIMONIDINE TARTRATE 0.1% 5 ML OPHTHALMIC SOLUTION OU SCH (20:31)
[2022-01-22] MEDS: ATORVASTATIN CALCIUM 20 MG TABLET PO SCH (20:31)
[2022-01-22] MEDS: TRAVOPROST-Z 0.004% 2.5 ML OPHTHALMIC SOLUTION OU SCH (20:31)
[2022-01-22] MEDS: SENNA 187 MG TABLET PO SCH (20:32)
[2022-01-22 23:00] VITALS: BP 155/84
[2022-01-23] MEDS: PANTOPRAZOLE SODIUM 40 MG DR TABLET PO SCH (07:10)
[2022-01-23 08:05] VITALS: BP 141/82
[2022-01-23] MEDS: HydrALAZINE HCL 50 MG TABLET PO SCH ×2 (08:12→15:45)
[2022-01-23] MEDS: 0.9% SODIUM CHLORIDE 10 ML SYRINGE IVP SCH ×2 (08:13→20:36)
[2022-01-23] MEDS: ETHYL ALCOHOL 62% ANTISEPTIC NASAL SANITIZER 0.6 ML AMPUL NASAL SCH ×2 (08:13→20:36)
[2022-01-23] MEDS: DOCUSATE SODIUM 100 MG CAPSULE PO SCH ×2 (08:14→20:35)
[2022-01-23] MEDS: MYCOPHENOLATE MOFETIL 250 MG CAPSULE PO SCH ×2 (08:14→20:35)
[2022-01-23] MEDS: PredniSONE 20 MG TABLET PO SCH (08:15)
[2022-01-23] MEDS: CARVEDILOL 12.5 MG TABLET PO SCH ×2 (08:15→20:35)
[2022-01-23] MEDS: FUROSEMIDE 20 MG TABLET PO SCH ×2 (08:16→20:35)
[2022-01-23] MEDS: POTASSIUM CHLORIDE 8 MEQ ER TABLET PO SCH (08:16)
[2022-01-23] MEDS: AmLODIPine BESYLATE 10 MG TABLET PO SCH (08:17)
[2022-01-23] MEDS: SOD FERRIC GLUC COMPLX/SUCROSE 125 MG in SODIUM CHLORIDE 0.9% 100 ML IV SCH (09:07)
[2022-01-23 15:30] VITALS: BP 143/88
[2022-01-23 20:30] VITALS: BP 162/85
[2022-01-23] MEDS: ATORVASTATIN CALCIUM 20 MG TABLET PO SCH (20:35)
[2022-01-23] MEDS: SENNA 187 MG TABLET PO SCH (20:35)
[2022-01-23] MEDS: BRIMONIDINE TARTRATE 0.1% 5 ML OPHTHALMIC SOLUTION OU SCH (20:36)
[2022-01-23] MEDS: TRAVOPROST-Z 0.004% 2.5 ML OPHTHALMIC SOLUTION OU SCH (20:36)
[2022-01-24] MEDS: HydrALAZINE HCL 50 MG TABLET PO SCH ×4 (01:09→23:57)
[2022-01-24 01:10] VITALS: BP 164/98
[2022-01-24 06:36] LABS: HEMOGLOBIN A1C 4.7 % (3.8-5.6)
[2022-01-24 06:39] LABS: CALCIUM, TOTAL 7.6 mg/dL (8.8-10.5); CREATININE 2.97 mg/dL (0.60-1.30); MAGNESIUM 1.5 mg/dL (1.80-2.40); POTASSIUM 3.2 mmol/L (3.5-5.1)
[2022-01-24] MEDS: PANTOPRAZOLE SODIUM 40 MG DR TABLET PO SCH (06:47)
[2022-01-24 07:35] VITALS: BP 142/86
[2022-01-24] MEDS: SOD FERRIC GLUC COMPLX/SUCROSE 125 MG in SODIUM CHLORIDE 0.9% 100 ML IV SCH ×2 (08:20→08:51)
[2022-01-24] MEDS: ETHYL ALCOHOL 62% ANTISEPTIC NASAL SANITIZER 0.6 ML AMPUL NASAL SCH ×2 (08:53→20:54)
[2022-01-24] MEDS: 0.9% SODIUM CHLORIDE 10 ML SYRINGE IVP SCH ×2 (08:53→20:54)
[2022-01-24] MEDS: MYCOPHENOLATE MOFETIL 250 MG CAPSULE PO SCH ×2 (08:53→20:53)
[2022-01-24] MEDS: CARVEDILOL 12.5 MG TABLET PO SCH (08:54)
[2022-01-24] MEDS: DOCUSATE SODIUM 100 MG CAPSULE PO SCH ×2 (08:54→21:00)
[2022-01-24] MEDS: PredniSONE 20 MG TABLET PO SCH (08:56)
[2022-01-24] MEDS: POTASSIUM CHLORIDE 8 MEQ ER TABLET PO SCH (08:56)
[2022-01-24] MEDS: FUROSEMIDE 20 MG TABLET PO SCH ×2 (08:56→20:53)
[2022-01-24] MEDS: AmLODIPine BESYLATE 10 MG TABLET PO SCH (08:56)
[2022-01-24] MEDS: EPOETIN ALFA 10,000 UNITS/ML VIAL SQ SCH (08:57)
[2022-01-24] MEDS ORDERED: POTASSIUM CHLORIDE 20 MEQ ER TABLET PO ONE (10:45)
[2022-01-24 16:25] VITALS: BP 153/86
[2022-01-24 20:51] VITALS: BP 161/84
[2022-01-24] MEDS: BRIMONIDINE TARTRATE 0.1% 5 ML OPHTHALMIC SOLUTION OU SCH (20:53)
[2022-01-24] MEDS: ATORVASTATIN CALCIUM 20 MG TABLET PO SCH (20:53)
[2022-01-24] MEDS: CARVEDILOL 25 MG TABLET PO SCH (20:53)
[2022-01-24] MEDS: TRAVOPROST-Z 0.004% 2.5 ML OPHTHALMIC SOLUTION OU SCH (20:53)
[2022-01-24] MEDS: SENNA 187 MG TABLET PO SCH (21:00)
[2022-01-25 00:01] VITALS: BP 153/85
[2022-01-25] MEDS: PANTOPRAZOLE SODIUM 40 MG DR TABLET PO SCH (07:02)
[2022-01-25 08:01] VITALS: BP 160/103
[2022-01-25] MEDS: HydrALAZINE HCL 50 MG TABLET PO SCH ×3 (08:16→23:57)
[2022-01-25] MEDS: MYCOPHENOLATE MOFETIL 250 MG CAPSULE PO SCH ×2 (08:17→20:45)
[2022-01-25] MEDS: POTASSIUM CHLORIDE 8 MEQ ER TABLET PO SCH (08:18)
[2022-01-25] MEDS: CARVEDILOL 25 MG TABLET PO SCH ×2 (08:19→20:45)
[2022-01-25] MEDS: AmLODIPine BESYLATE 10 MG TABLET PO SCH (08:19)
[2022-01-25] MEDS: SOD FERRIC GLUC COMPLX/SUCROSE 125 MG in SODIUM CHLORIDE 0.9% 100 ML IV SCH (08:20)
[2022-01-25] MEDS: FUROSEMIDE 20 MG TABLET PO SCH ×2 (08:22→20:45)
[2022-01-25] MEDS: 0.9% SODIUM CHLORIDE 10 ML SYRINGE IVP SCH ×2 (08:22→20:44)
[2022-01-25] MEDS: DOCUSATE SODIUM 100 MG CAPSULE PO SCH ×2 (08:23→20:46)
[2022-01-25] MEDS: ETHYL ALCOHOL 62% ANTISEPTIC NASAL SANITIZER 0.6 ML AMPUL NASAL SCH ×2 (08:23→20:44)
[2022-01-25] MEDS: PredniSONE 20 MG TABLET PO SCH (08:27)
[2022-01-25 10:00] VITALS: BP 145/77
[2022-01-25] MEDS: MAGNESIUM OXIDE 400 MG TABLET PO SCH ×2 (14:08→20:46)
[2022-01-25 14:41] LABS: CALCIUM, TOTAL 8.2 mg/dL (8.8-10.5); CREATININE 2.84 mg/dL (0.60-1.30); POTASSIUM 3.6 mmol/L (3.5-5.1)
[2022-01-25 14:45] LABS: MAGNESIUM 1.5 mg/dL (1.80-2.40); PHOSPHORUS 4.8 mg/dL (2.5-4.9)
[2022-01-25 16:00] VITALS: BP 141/91
[2022-01-25 16:53] LABS: CREATININE,URINE RANDOM 36.4 mg/dL (30.0-125.0)
[2022-01-25] MEDS: TRAVOPROST-Z 0.004% 2.5 ML OPHTHALMIC SOLUTION OU SCH (20:45)
[2022-01-25] MEDS: BRIMONIDINE TARTRATE 0.1% 5 ML OPHTHALMIC SOLUTION OU SCH (20:45)
[2022-01-25] MEDS: ATORVASTATIN CALCIUM 20 MG TABLET PO SCH (20:46)
[2022-01-25] MEDS: SENNA 187 MG TABLET PO SCH (20:47)
[2022-01-25 20:54] VITALS: BP 149/79
[2022-01-25] MEDS ORDERED: MAGNESIUM OXIDE 400 MG TABLET PO SCH (21:00)
[2022-01-25 23:50] VITALS: BP 143/77
[2022-01-26] MEDS: PANTOPRAZOLE SODIUM 40 MG DR TABLET PO SCH (05:58)
[2022-01-26] MEDS ORDERED: SODIUM CHLORIDE 0.9% 250 ML IV ONE (07:25)
[2022-01-26 07:59] LABS: CREATININE 2.79 mg/dL (0.60-1.30); MAGNESIUM 1.6 mg/dL (1.80-2.40); POTASSIUM 3.4 mmol/L (3.5-5.1)
[2022-01-26 08:05] VITALS: BP 141/78
[2022-01-26] MEDS: SOD FERRIC GLUC COMPLX/SUCROSE 125 MG in SODIUM CHLORIDE 0.9% 100 ML IV SCH (08:16)
[2022-01-26] MEDS: ETHYL ALCOHOL 62% ANTISEPTIC NASAL SANITIZER 0.6 ML AMPUL NASAL SCH ×2 (08:16→20:50)
[2022-01-26] MEDS: MYCOPHENOLATE MOFETIL 250 MG CAPSULE PO SCH ×2 (08:16→20:49)
[2022-01-26] MEDS: PredniSONE 20 MG TABLET PO SCH (08:17)
[2022-01-26] MEDS: POTASSIUM CHLORIDE 8 MEQ ER TABLET PO SCH ×2 (08:17→20:49)
[2022-01-26] MEDS: CARVEDILOL 25 MG TABLET PO SCH ×2 (08:17→20:48)
[2022-01-26] MEDS: MAGNESIUM OXIDE 400 MG TABLET PO SCH ×2 (08:17→20:48)
[2022-01-26] MEDS: HydrALAZINE HCL 50 MG TABLET PO SCH ×2 (08:17→16:00)
[2022-01-26] MEDS: FUROSEMIDE 20 MG TABLET PO SCH (08:17)
[2022-01-26] MEDS: AmLODIPine BESYLATE 10 MG TABLET PO SCH (08:17)
[2022-01-26] MEDS: DOCUSATE SODIUM 100 MG CAPSULE PO SCH ×2 (08:19→20:31)
[2022-01-26] MEDS: 0.9% SODIUM CHLORIDE 10 ML SYRINGE IVP SCH ×2 (08:21→20:51)
[2022-01-26] MEDS ORDERED: FUROSEMIDE 40 MG TABLET PO SCH (09:00)
[2022-01-26] MEDS ORDERED: POTASSIUM CHLORIDE 8 MEQ ER TABLET PO SCH (09:00)
[2022-01-26] MEDS ORDERED: MAGNESIUM OXIDE 400 MG TABLET PO ONE (09:30)
[2022-01-26 10:30] VITALS: BP 145/72
[2022-01-26] MEDS ORDERED: FUROSEMIDE 20 MG TABLET PO ONE (11:30)
[2022-01-26 16:00] VITALS: BP 140/74
[2022-01-26] MEDS: SENNA 187 MG TABLET PO SCH (20:32)
[2022-01-26] MEDS: ATORVASTATIN CALCIUM 20 MG TABLET PO SCH (20:47)
[2022-01-26 20:48] VITALS: BP 142/77
[2022-01-26] MEDS: FUROSEMIDE 40 MG TABLET PO SCH (20:48)
[2022-01-26] MEDS: TRAVOPROST-Z 0.004% 2.5 ML OPHTHALMIC SOLUTION OU SCH (20:49)
[2022-01-26] MEDS: BRIMONIDINE TARTRATE 0.1% 5 ML OPHTHALMIC SOLUTION OU SCH (20:49)
[2022-01-27] VITALS: BP 159/77
[2022-01-27] MEDS: HydrALAZINE HCL 50 MG TABLET PO SCH ×3 (00:11→16:26)
[2022-01-27 06:10] LABS: CALCIUM, TOTAL 8.4 mg/dL (8.8-10.5); CREATININE 3.01 mg/dL (0.60-1.30); MAGNESIUM 1.4 mg/dL (1.80-2.40); PHOSPHORUS 4.4 mg/dL (2.5-4.9); POTASSIUM 3.5 mmol/L (3.5-5.1)
[2022-01-27] MEDS: PANTOPRAZOLE SODIUM 40 MG DR TABLET PO SCH (06:33)
[2022-01-27 07:30] VITALS: BP 152/73
[2022-01-27] MEDS: DOCUSATE SODIUM 100 MG CAPSULE PO SCH ×2 (08:36→21:00)
[2022-01-27] MEDS: ETHYL ALCOHOL 62% ANTISEPTIC NASAL SANITIZER 0.6 ML AMPUL NASAL SCH (08:36)
[2022-01-27] MEDS: 0.9% SODIUM CHLORIDE 10 ML SYRINGE IVP SCH (08:36)
[2022-01-27] MEDS: MYCOPHENOLATE MOFETIL 250 MG CAPSULE PO SCH ×2 (08:36→22:01)
[2022-01-27] MEDS: POTASSIUM CHLORIDE 8 MEQ ER TABLET PO SCH ×2 (08:37→22:01)
[2022-01-27] MEDS: CARVEDILOL 25 MG TABLET PO SCH ×2 (08:37→22:01)
[2022-01-27] MEDS: PredniSONE 20 MG TABLET PO SCH (08:37)
[2022-01-27] MEDS: METHIMAZOLE 5 MG TABLET PO SCH (08:38)
[2022-01-27] MEDS: MAGNESIUM OXIDE 400 MG TABLET PO SCH ×2 (08:38→22:01)
[2022-01-27] MEDS: AmLODIPine BESYLATE 10 MG TABLET PO SCH (08:38)
[2022-01-27] MEDS: EPOETIN ALFA 10,000 UNITS/ML VIAL SQ SCH (08:38)
[2022-01-27] MEDS: FUROSEMIDE 40 MG TABLET PO SCH (08:38)
[2022-01-27] MEDS: SOD FERRIC GLUC COMPLX/SUCROSE 125 MG in SODIUM CHLORIDE 0.9% 100 ML IV SCH (09:14)
[2022-01-27 16:15] VITALS: BP 148/78
[2022-01-27] MEDS: SENNA 187 MG TABLET PO SCH (21:00)
[2022-01-27 21:03] VITALS: BP 135/75
[2022-01-27] MEDS: BRIMONIDINE TARTRATE 0.1% 5 ML OPHTHALMIC SOLUTION OU SCH (22:00)
[2022-01-27] MEDS: FUROSEMIDE 20 MG TABLET PO SCH (22:01)
[2022-01-27] MEDS: TRAVOPROST-Z 0.004% 2.5 ML OPHTHALMIC SOLUTION OU SCH (22:01)
[2022-01-27] MEDS: ATORVASTATIN CALCIUM 20 MG TABLET PO SCH (22:01)
[2022-01-28] VITALS: BP 137/70
[2022-01-28] MEDS: HydrALAZINE HCL 50 MG TABLET PO SCH ×3 (00:20→16:29)
[2022-01-28] MEDS: ETHYL ALCOHOL 62% ANTISEPTIC NASAL SANITIZER 0.6 ML AMPUL NASAL SCH ×3 (00:20→20:36)
[2022-01-28] MEDS: 0.9% SODIUM CHLORIDE 10 ML SYRINGE IVP SCH ×3 (00:28→20:36)
[2022-01-28] MEDS: SOD FERRIC GLUC COMPLX/SUCROSE 125 MG in SODIUM CHLORIDE 0.9% 100 ML IV SCH (06:35)
[2022-01-28] MEDS: PANTOPRAZOLE SODIUM 40 MG DR TABLET PO SCH (06:35)
[2022-01-28 07:28] LABS: CALCIUM, TOTAL 8.5 mg/dL (8.8-10.5); CREATININE 2.94 mg/dL (0.60-1.30); MAGNESIUM 1.4 mg/dL (1.80-2.40); PHOSPHORUS 4.6 mg/dL (2.5-4.9); POTASSIUM 3.4 mmol/L (3.5-5.1)
[2022-01-28 08:01] VITALS: BP 138/70
[2022-01-28] MEDS: MAGNESIUM OXIDE 400 MG TABLET PO SCH ×4 (08:10→20:39)
[2022-01-28] MEDS: AmLODIPine BESYLATE 10 MG TABLET PO SCH (08:10)
[2022-01-28] MEDS: CARVEDILOL 25 MG TABLET PO SCH ×2 (08:10→20:38)
[2022-01-28] MEDS: MYCOPHENOLATE MOFETIL 250 MG CAPSULE PO SCH ×2 (08:10→20:38)
[2022-01-28] MEDS: PredniSONE 20 MG TABLET PO SCH (08:10)
[2022-01-28] MEDS: FUROSEMIDE 20 MG TABLET PO SCH ×2 (08:11→20:39)
[2022-01-28] MEDS: POTASSIUM CHLORIDE 8 MEQ ER TABLET PO SCH ×2 (08:11→20:38)
[2022-01-28] MEDS: DOCUSATE SODIUM 100 MG CAPSULE PO SCH ×2 (08:56→21:00)
[2022-01-28 16:27] VITALS: BP 142/68
[2022-01-28 20:36] VITALS: BP 140/76
[2022-01-28] MEDS: TRAVOPROST-Z 0.004% 2.5 ML OPHTHALMIC SOLUTION OU SCH (20:36)
[2022-01-28] MEDS: BRIMONIDINE TARTRATE 0.1% 5 ML OPHTHALMIC SOLUTION OU SCH (20:37)
[2022-01-28] MEDS: ATORVASTATIN CALCIUM 20 MG TABLET PO SCH (20:38)
[2022-01-28] MEDS: SENNA 187 MG TABLET PO SCH (21:00)
[2022-01-28] MEDS ORDERED: PANT-31 PO (23:00)
[2022-01-28] MEDS ORDERED: FURO20 PO (23:00)
[2022-01-28] MEDS ORDERED: POTA8TAB71 PO (23:00)
[2022-01-28] MEDS ORDERED: ATOR20TA86 PO (23:00)
[2022-01-28] MEDS ORDERED: CARV25 PO (23:00)
[2022-01-28] MEDS ORDERED: HYDR50TA36 PO (23:00)
[2022-01-28] MEDS ORDERED: BRIM155OS OU (23:00)
[2022-01-28] MEDS ORDERED: MAGN400T57 PO (23:00)
[2022-01-29 00:38] VITALS: BP 138/61
[2022-01-29] MEDS: HydrALAZINE HCL 50 MG TABLET PO SCH ×2 (00:39→08:33)
[2022-01-29] MEDS: PANTOPRAZOLE SODIUM 40 MG DR TABLET PO SCH (06:12)
[2022-01-29 07:09] LABS: CALCIUM, TOTAL 8.5 mg/dL (8.8-10.5); CREATININE 3.18 mg/dL (0.60-1.30); MAGNESIUM 1.5 mg/dL (1.80-2.40); PHOSPHORUS 4.2 mg/dL (2.5-4.9); POTASSIUM 3.6 mmol/L (3.5-5.1)
[2022-01-29 08:14] LABS: BASOPHILS % (AUTO) 0.2 % (0.0-2.0); EOSINOPHILS % (AUTO) 0.1 % (1.0-6.0); LYMPHOCYTES # (AUTO) 0.3 K/uL (1.0-4.8); LYMPHOCYTES % (AUTO) 2.2 % (22.0-44.0); MEAN CORPUSCULAR HEMOGLOBIN 32.3 pg (26.0-34.0); MEAN CORPUSCULAR HGB CONC 31.4 G/dL (31.0-37.0); MEAN CORPUSCULAR VOLUME 103 fL (80-100); MONOCYTES # (AUTO) 0.4 K/uL (0.1-1.0); MONOCYTES % (AUTO) 3.8 % (2.0-9.0); NEUTROPHILS # (AUTO) 10.8 K/uL (1.8-7.7); PLATELET COUNT (AUTO) 69 K/uL (150-450); RED BLOOD CELL COUNT(AUTO) 1.96 MIL/uL (4.00-5.20); RED CELL DISTRIBUTION WIDTH 21.8 % (11.5-14.5)
[2022-01-29 08:15] VITALS: BP 146/83
[2022-01-29] MEDS ORDERED: SODIUM CHLORIDE 0.9% 100 ML ONE (08:17)
[2022-01-29] MEDS: SOD FERRIC GLUC COMPLX/SUCROSE 125 MG in SODIUM CHLORIDE 0.9% 100 ML IV SCH (08:20)
[2022-01-29 08:24] LABS: HEMATOCRIT 20.2 % (36-46); HEMOGLOBIN 6.4 g/dL (12.0-16.0); NEUTROPHILS % (AUTO) 93.7 % (40.0-70.0)
[2022-01-29] MEDS: ETHYL ALCOHOL 62% ANTISEPTIC NASAL SANITIZER 0.6 ML AMPUL NASAL SCH (08:32)
[2022-01-29] MEDS: MYCOPHENOLATE MOFETIL 250 MG CAPSULE PO SCH (08:32)
[2022-01-29] MEDS: CARVEDILOL 25 MG TABLET PO SCH (08:33)
[2022-01-29] MEDS: AmLODIPine BESYLATE 10 MG TABLET PO SCH (08:33)
[2022-01-29] MEDS: MAGNESIUM OXIDE 400 MG TABLET PO SCH (08:33)
[2022-01-29] MEDS: POTASSIUM CHLORIDE 8 MEQ ER TABLET PO SCH (08:33)
[2022-01-29] MEDS: PredniSONE 20 MG TABLET PO SCH (08:33)
[2022-01-29] MEDS: FUROSEMIDE 20 MG TABLET PO SCH (08:33)
[2022-01-29] MEDS: METHIMAZOLE 5 MG TABLET PO SCH (08:33)
[2022-01-29] MEDS: 0.9% SODIUM CHLORIDE 10 ML SYRINGE IVP SCH (08:34)
[2022-01-29] MEDS: DOCUSATE SODIUM 100 MG CAPSULE PO SCH (08:34)
[2022-01-29] MEDS: EPOETIN ALFA 10,000 UNITS/ML VIAL SQ SCH (08:34)
[2022-01-29] MEDS ORDERED: METHI5 PO (11:05)
[2022-01-29] MEDS ORDERED: CARV25 PO (11:05)
[2022-01-29] MEDS ORDERED: MYCO250C27 PO (11:05)
[2022-01-29] MEDS ORDERED: BRIM15OS OU (11:05)
[2022-01-29] MEDS ORDERED: PANT-31 PO (11:05)
[2022-01-29] MEDS ORDERED: SLOWK8 PO (11:05)
[2022-01-29] MEDS ORDERED: TRAV2.5D7 OU (11:05)
[2022-01-29] MEDS ORDERED: ATOR20TA65 PO (11:05)
[2022-01-29] MEDS ORDERED: PRED-554 PO (11:05)
[2022-01-29] MEDS ORDERED: HYDR-4174 PO (11:05)
[2022-01-29] MEDS ORDERED: SENN-187 PO (11:05)
[2022-01-29] MEDS ORDERED: FURO20 PO (11:05)
[2022-01-29] MEDS ORDERED: MAGN400T57 PO (11:05)
[2022-01-29] MEDS ORDERED: DOCU-385 PO (11:05)
[2022-01-29] MEDS ORDERED: AMLO-258 PO (11:05)
== END 2022-01-29 14:50 | disposition home health service (06) | DRG 56 ==
LOC: 2WR 18:25
PROVIDERS: ADMIT Physical Medicine & Rehabilitation; ATTEND Physical Medicine & Rehabilitation
DX: G81.91 Hemiplegia, unspecified affecting right dominant side (principal); G93.41 Metabolic encephalopathy; S06.360A Traumatic hemorrhage of cerebrum, unspecified, without loss of consciousness, initial encounter; E44.0 Moderate protein-calorie malnutrition; E87.1 Hypo-osmolality and hyponatremia; I16.1 Hypertensive emergency; R47.01 Aphasia; N18.4 Chronic kidney disease, stage 4 (severe); D63.1 Anemia in chronic kidney disease; E05.90 Thyrotoxicosis, unspecified without thyrotoxic crisis or storm; D72.829 Elevated white blood cell count, unspecified; E83.42 Hypomagnesemia; E87.6 Hypokalemia; E87.70 Fluid overload, unspecified; I12.9 Hypertensive chronic kidney disease with stage 1 through stage 4 chronic kidney disease, or unspecified chronic kidney disease; R13.10 Dysphagia, unspecified; R56.9 Unspecified convulsions; M32.14 Glomerular disease in systemic lupus erythematosus; D69.6 Thrombocytopenia, unspecified; R77.8 Other specified abnormalities of plasma proteins; I08.1 Rheumatic disorders of both mitral and tricuspid valves; X58.XXXA Exposure to other specified factors, initial encounter; Z79.899 Other long term (current) drug therapy; Z68.23 Body mass index [BMI] 23.0-23.9, adult; Y93.89 Activity, other specified; Y92.89 Other specified places as the place of occurrence of the external cause; Y99.8 Other external cause status
CPT/HCPCS: 70450; 80048; 80053; 82570; 83036; 83735; 84100; 84132; 84156; 85025; 87081; 92507; 92523; 92526; 93970; 97110; 97112; 97116; 97163; 97166; 97530; 97535; 99366; J0885; J2916; J7050; J7517